=== PATIENT | female | born 1935 | race Caucasian/White ===

== ENCOUNTER → 2016-05-04 | Outpatient (CLI) | payer MEDICARE ==
[~2016-05-04] MED LIST: DENOSUMAB 60 MG/ML 1 ML SYRINGE SQ ONE
[2016-05-04 09:53] VITALS: BP 150/72; PULSE 83; RESP 18; TEMP 98
== END | disposition home or self-care (01) ==
LOC: PROCWHC3 09:26
PROVIDERS: ATTEND Internal Medicine Endocrinology, Diabetes & Metabolism
DX: M81.0 Age-related osteoporosis without current pathological fracture (principal)
CPT/HCPCS: 96372; J0897

== ENCOUNTER → 2016-11-03 | Outpatient (CLI) | payer MEDICARE ==
[2016-11-03 11:22] VITALS: BP 130/63; PULSE 79; RESP 16; TEMP 98.1
== END ==
LOC: PROCWHC3 11:04
PROVIDERS: ATTEND Internal Medicine Endocrinology, Diabetes & Metabolism
DX: M81.0 Age-related osteoporosis without current pathological fracture (principal)
CPT/HCPCS: 96372

== ENCOUNTER → 2017-06-14 | Outpatient (CLI) | payer MEDICARE ==
[2017-06-14 13:43] VITALS: BP 136/68; PULSE 93; RESP 18; TEMP 98
== END | disposition home or self-care (01) ==
LOC: PROCWHC3 12:59
PROVIDERS: ATTEND Internal Medicine Endocrinology, Diabetes & Metabolism
DX: M81.0 Age-related osteoporosis without current pathological fracture (principal)
CPT/HCPCS: 96372; J0897